=== PATIENT | female | born 2000 | race American Indian/Alaskan Native ===

== ENCOUNTER 2019-05-27 15:03 | Emergency (ER) | payer SELFPAY ==
--- NOTE | 2019-05-27 16:30 | Event Note ---
ED Screening Note Date of service: 05/27/19 Time: 16:25 ED Screening Note: This is a 19 y.o. F. that presents to the ER with pelvic pain after taking azithromycin around 1200. Patient states she was treated for an STI at [facility] 3 days ago. + vomiting, diarrhea, back pain, pelvic pain, & vaginal discharge - dysuria, urinary frequency, and urgency This initial assessment/diagnostic orders/clinical plan/treatment(s) is/are subject to change based on patients health status, clinical progression and re- assessment by fellow clinical providers in the ED. Further treatment and workup at subsequent clinical providers discretion. Patient/guardian urged not to elope from the ED as their condition may be serious if not clinically assessed and managed. Initial orders include: Labs
[2019-05-27 17:23] LABS: Basophils % (Auto) 0.3 % (0.0-1.8); Eosinophils % (Auto) 0.4 % (0.0-4.3); Hematocrit 38.5 % (30.3-42.9); Hemoglobin 12.7 gm/dl (10.1-14.3); Lymphocytes # (Auto) 0.7 K/mm3 (1.2-5.4); Mean Corpuscular HGB Conc 33 % (30-34); Mean Corpuscular Volume 80 fl (79-97); Monocytes # (Auto) 0.3 K/mm3 (0.0-0.8); Platelet Count 293 K/mm3 (140-440); Red Blood Count 4.81 M/mm3 (3.65-5.03); Red Cell Distribution Width 14.5 % (13.2-15.2)
[2019-05-27] MEDS ORDERED: MYLICON PO ONE (17:29)
[2019-05-27] MEDS ORDERED: PEPCID PO ONE (17:29)
[2019-05-27] MEDS ORDERED: ZOFRAN ODT PO ONE (17:29)
[2019-05-27 17:44] LABS: Alanine Aminotransferase 14 units/L (7-56); Albumin 4.8 g/dL (3.9-5); BUN/Creatinine Ratio 11; Blood Urea Nitrogen 9 mg/dL (7-17); Calcium 9.4 mg/dL (8.4-10.2); Hemolysis Index 18
--- NOTE | 2019-05-27 20:29 | Emergency Department Report ---
ED Abdominal Pain HPI - General Chief Complaint: Abdominal Pain Stated Complaint: ABD PAIN Time Seen by Provider: 05/27/19 16:24 Source: patient Mode of arrival: Ambulatory Limitations: No Limitations - History of Present Illness Initial Comments: Patient is a 19-year-old female medical history presents to the ED with complaint of acute onset persistent nausea, vomiting and epigastric pain after taking Azithromycin 1000mg po x 1 about 6 hours ago. Patient states that the epigastric pain has been persistent and admits that she took the medication with food. Patient denies dizziness, diarrhea, chest pain, shortness of breath, fever, chills, cough or dysuria. Patient states that she had been taking the azithromycin for her recent diagnoses of chlamydia. Patient also states that all the medicine that she vomited all the medication she took. MD Complaint: abdominal pain, other (nausea and vomiting) -: Sudden, hour(s) (6) Location: epigastric Radiation: epigastric Migration to: no migration Severity: moderate Severity scale (0 -10): 4 Quality: aching Consistency: constant Improves With: nothing Worsens With: nothing Associated Symptoms: denies other symptoms, nausea, vomiting. denies: diarrhea, fever, chills, constipation, dysuria, hematemesis, hematochezia, melena, anorexia, syncope - Related Data LMP Date: 05/14/19 Previous Rx's Medication Instructions Recorded Last Taken Type Azithromycin [Zithromax TAB] 500 mg PO QDAY #2 tablet 05/27/19 Unknown Rx Dicyclomine [Bentyl] 20 mg PO Q6H PRN #20 tablet 05/27/19 Unknown Rx Famotidine [Pepcid] 20 mg PO Q12H #20 tablet 05/27/19 Unknown Rx Ondansetron [Zofran Odt] 4 mg PO Q6H PRN #15 tab.rapdis 05/27/19 Unknown Rx Allergies Allergy/AdvReac Type Severity Reaction Status Date / Time No Known Allergies Allergy Unverified 05/27/19 15:24 ED Review of Systems ROS: Stated complaint: ABD PAIN Other details as noted in HPI Constitutional: denies: chills, fever Eyes: denies: eye pain, eye discharge, vision change ENT: denies: ear pain, throat pain Respiratory: denies: cough, shortness of breath, wheezing Cardiovascular: denies: chest pain, palpitations Endocrine: no symptoms reported Gastrointestinal: abdominal pain, nausea, vomiting. denies: diarrhea Genitourinary: denies: urgency, dysuria, discharge Musculoskeletal: denies: back pain, joint swelling, arthralgia Skin: denies: rash, lesions Neurological: denies: headache, weakness, paresthesias Psychiatric: denies: anxiety, depression Hematological/Lymphatic: denies: easy bleeding, easy bruising ED Past Medical Hx - Past Medical History Previous Medical History?: No - Surgical History Past Surgical History?: No - Social History Smoking Status: Never Smoker Substance Use Type: None - Medications Home Medications: Home Medications Medication Instructions Recorded Confirmed Last Taken Type Azithromycin [Zithromax TAB] 500 mg PO QDAY #2 tablet 05/27/19 Unknown Rx Dicyclomine [Bentyl] 20 mg PO Q6H PRN #20 tablet 05/27/19 Unknown Rx Famotidine [Pepcid] 20 mg PO Q12H #20 tablet 05/27/19 Unknown Rx Ondansetron [Zofran Odt] 4 mg PO Q6H PRN #15 tab.rapdis 05/27/19 Unknown Rx ED Physical Exam - General Limitations: No Limitations General appearance: alert, in no apparent distress - Head Head exam: Present: atraumatic, normocephalic, normal inspection - Eye Eye exam: Present: normal appearance, PERRL, EOMI Pupils: Present: normal accommodation - ENT ENT exam: Present: normal exam, normal orophraynx, mucous membranes moist, TM's normal bilaterally, normal external ear exam - Neck Neck exam: Present: normal inspection, full ROM - Respiratory Respiratory exam: Present: normal lung sounds bilaterally. Absent: respiratory distress, wheezes, rales, rhonchi, chest wall tenderness, accessory muscle use, prolonged expiratory - Cardiovascular Cardiovascular Exam: Present: regular rate, normal rhythm. Absent: systolic murmur, diastolic murmur, rubs, gallop - GI/Abdominal GI/Abdominal exam: Present: soft, normal bowel sounds. Absent: tenderness, guarding, rebound, hyperactive bowel sounds, hypoactive bowel sounds - Extremities Exam Extremities exam: Present: normal inspection, full ROM, normal capillary refill - Back Exam Back exam: Present: normal inspection, full ROM - Neurological Exam Neurological exam: Present: alert, oriented X3, CN II-XII intact, normal gait, reflexes normal - Psychiatric Psychiatric exam: Present: normal affect, normal mood - Skin Skin exam: Present: warm, dry, intact, normal color. Absent: rash ED Course Vital Signs 05/27/19 16:24 Temperature 97.9 F Pulse Rate 77 Respiratory 18 Rate Blood Pressure 104/71 O2 Sat by Pulse 100 Oximetry - Reevaluation(s) Reevaluation #1: 05/27/19 20:37 This is a 19-year-old female who presented to the ED with nausea, vomiting and epigastric pain after taking azithromycin tablets at once on an empty stomach. In the ED, patient is alert and oriented 3 and is not in distress. Lab test results are nonactionable. Patient was treated for nausea and vomiting, also given antacids and pain medication. Patient was discharged home on medications and advised to follow-up with her family care physician in 7-10 days for reevaluation. A new prescription of azithromycin was also given to the patient since she vomited the previously prescribed dose. 05/27/19 20:38 ED Medical Decision Making - Lab Data Result diagrams: 05/27/19 17:09 05/27/19 17:09 - Medical Decision Making This is a 19-year-old female who presented to the ED with nausea, vomiting and epigastric pain after taking azithromycin tablets at once on an empty stomach. In the ED, patient is alert and oriented 3 and is not in distress. Lab test results are nonactionable. Patient was treated for nausea and vomiting, also given antacids and pain medication. Patient was discharged home on medications and advised to follow-up with her family care physician in 7-10 days for reevaluation. A new prescription of azithromycin was also given to the patient since she vomited the previously prescribed dose. 05/27/19 20:38 - Differential Diagnosis Nausea, vomiting; GERD; Gastritis Critical care attestation.: If time is entered above; I have spent that time in minutes in the direct care of this critically ill patient, excluding procedure time. ED Disposition Clinical Impression: Nausea and vomiting in adult, Epigastric abdominal pain GERD (gastroesophageal reflux disease) Qualifiers: Esophagitis presence: without esophagitis Qualified Code(s): K21.9 - Gastro-esophageal reflux disease without esophagitis Disposition: - TO HOME OR SELFCARE Is pt being admited?: No Does the pt Need Aspirin: No Condition: Stable Instructions: Abdominal Pain (ED), Acute Nausea and Vomiting (ED), Gastroesophageal Reflux Disease (ED) Additional Instructions: Take medication with food, drink plenty of fluids and follow-up with your primary care physician in 7-10 days for reevaluation. Return to the ED immediately if symptoms get worse. Prescriptions: Dicyclomine [Bentyl] 20 mg PO Q6H PRN #20 tablet PRN Reason: Pain , Severe (7-10) Famotidine [Pepcid] 20 mg PO Q12H #20 tablet Azithromycin [Zithromax TAB] 500 mg PO QDAY #2 tablet Ondansetron [Zofran Odt] 4 mg PO Q6H PRN #15 tab.rapdis PRN Reason: Nausea Referrals: PRIMARY CARE, [Primary Care Provider] - 3-5 Days Time of Disposition: 20:30 Print Language: WELSH
[2019-05-27 21:01] VITALS: BP 109/70
== END 2019-05-27 21:00 | disposition home or self-care (01) ==
LOC: ED 15:03
DX: K21.9 Gastro-esophageal reflux disease without esophagitis (principal)
CPT/HCPCS: 36415; 80053; 85025; Q0162